=== PATIENT | male | born 1945 | race Hispanic/Latino ===

== ENCOUNTER 2018-05-08 19:46 | Emergency (ER) | payer MEDICARE, BC ==
[2018-05-08 19:50] VITALS: BMI 39.0
[2018-05-08 21:04] VITALS: RESP 19; TEMP 97.8
--- NOTE | 2018-05-08 21:40 | ED PDOC ---
Arrival/HPI - General Historian: Patient - General Chief Complaint: Abdominal Pain Time Seen by Provider: 05/08/18 19:53 - History of Present Illness Narrative History of Present Illness (Text): 72 year old Male with history of colitis presents with Abdominal cramping that started at 2:30 PM today. He has had 2 episodes of nonbloody diarrhea followed by two episodes of diarrhea followed with a few drops of blood from the anus post defecation. He took peptobismol after the 1st and 2nd episode of nonbloody diarrhea. He hasn't had a bowel movement in a few hours. Abdominal cramping was improved with defecation. He denies nausea, vomiting, fever, headache, and dizziness. 05/08/18 21:37 05/08/18 21:40 (Cyndi Carlisle) Past Medical History - Provider Review Nursing Documentation Reviewed: Yes - Infectious Disease Hx of Infectious Diseases: None - Tetanus Immunization Tetanus Immunization: Up to Date - Cardiac Hx Cardiac Disorders: Yes Hx Hypertension: Yes Other/Comment: AAA - Gastrointestinal Hx Gastroesophageal Reflux: Yes Other/Comment: colitis, hernia - Psychiatric Hx Depression: No Hx Emotional Abuse: No Hx Physical Abuse: No Hx Substance Use: No - Past Surgical History Past Surgical History: No Previous - Surgical History Other/Comment: repaired abd and groin aneurysm, 2014 - Anesthesia Hx Anesthesia: Yes Hx Anesthesia Reactions: No Hx Malignant Hyperthermia: No - Suicidal Assessment Feels Threatened In Home Enviroment: No Family/Social History - Physician Review Nursing Documentation Reviewed: Yes Family/Social History: Unknown Family HX Smoking Status: Former Smoker Hx Alcohol Use: Yes (wine) Frequency of alcohol use: Socially Hx Substance Use: No Hx Substance Use Treatment: No Allergies/Home Meds Allergies/Adverse Reactions: Allergies banana Allergy (Verified 05/08/18 21:04) RASH iodine Allergy (Verified 05/08/18 21:04) RASH Penicillins Allergy (Verified 05/08/18 21:04) RASH shellfish derived Allergy (Verified 05/08/18 21:04) ANAPHYLAXIS shrimp Allergy (Verified 05/08/18 21:04) ANAPHYLAXIS contrast dye Adverse Reaction (Uncoded 05/08/18 21:05) RASH Home Medications: Home Meds Medication Instructions Recorded Confirmed Atorvastatin Calcium [Lipitor] 20 mg PO HS 08/01/13 05/08/18 Metoprolol Succinate XL [Toprol XL] 100 mg PO DAILY 08/01/13 05/08/18 Valsartan/Hydrochlorothiazide 12.5 mg PO DAILY 08/21/16 05/08/18 [Diovan Hct 320-25 mg Tablet] Review of Systems - Physician Review All systems were reviewed & negative as marked: Yes - Review of Systems Constitutional: Normal Eyes: Normal Respiratory: Normal Cardiovascular: Normal Gastrointestinal: Abdominal Pain, Diarrhea, Other (bloody diarrhea) Musculoskeletal: Normal Skin: Normal Physical Exam Temperature: Afebrile Blood Pressure: Hypertensive Pulse: Regular Respiratory Rate: Normal Appearance: Positive for: Well-Appearing Pain Distress: None Mental Status: Positive for: Alert and Oriented X 3 - Systems Exam Head: Present: Atraumatic, Normocephalic Pupils: Present: PERRL Extroacular Muscles: Present: EOMI Nose (External): Present: Atraumatic Neck: Present: Normal Range of Motion Respiratory/Chest: Present: Clear to Auscultation Cardiovascular: Present: Regular Rate and Rhythm Abdomen: Present: Normal Bowel Sounds Back: Present: Normal Inspection Upper Extremity: Present: Normal Inspection, Normal ROM, NORMAL PULSES Lower Extremity: Present: Normal Inspection, NORMAL PULSES, Normal ROM Neurological: Present: GCS=15, CN II-XII Intact, Speech Normal Skin: Present: Warm, Dry Psychiatric: Present: Alert, Oriented x 3, Normal Insight, Normal Concentration Vital Signs Temp Pulse Resp BP Pulse Ox 05/09/18 01:58 52 L 19 127/82 96 05/08/18 23:30 88 19 120/65 05/08/18 20:49 97.8 F 78 19 152/101 H 97 Medical Decision Making ED Course and Treatment: 05/08/18 22:54 Patient seen and evaluated with spanish medical interpreter. Patient on examination with mild diffuse abdominal pain. Rectal exam reviewed with resident, there is heme positive stool but no gross bleeding or melena. Pain is not colicky. No rebound or guarding noted. No chest pain or palpitations noted. Patient is not on anticoagulants. Denies lightheadedness or dizziness. He has prior history of colitis. CT ordered with oral contrast. On re-exam patient is comfortable, pending CT scan. Will endorse case to Dr. Schulte for re-exam, follow-up of CT, disposition. (Talon Campos) Impression: 72 year old Male presents with 7 hour history of abdominal cramping , 2 episodes of nonbloody diarrhea, and 2 episodes of bloody diarrhea. Assessment: colitis, hemorrhoids Rule out diverticulosis, diverticulitis, AVM, colon cancer, upper GI bleed causes Plan: IV Saline 1L at 100ml/hr CBC CMP PT/INR PTT Imaging: Abdominal CT Rectal Exam: guaiac positive EK05/08/18 21:44 05/08/18 21:47 (Cyndi Carlisle) - Lab Interpretations Lab Results: 05/08/18 22:17 05/08/18 22:17 Lab Results 05/08/18 23:02: PT 11.9, INR 1.04, APTT 30.5 05/08/18 22:17: Sodium 141, Potassium 4.5, Chloride 105, Carbon Dioxide 26, Anion Gap 15, BUN 20, Creatinine 0.8, Est GFR ( Amer) > 60, Est GFR (Non- Af Amer) > 60, Random Glucose 119 H, Calcium 9.6, Total Bilirubin 0.9, AST 94 H , ALT 98 H, Alkaline Phosphatase 66, Total Protein 7.5, Albumin 4.1, Globulin 3.4, Albumin/Globulin Ratio 1.2 05/08/18 22:17: WBC 8.7, RBC 4.14, Hgb 12.8 L, Hct 37.8 L, MCV 91.3, MCH 30.9, MCHC 33.9, RDW 13.6, Plt Count 200, MPV 9.9, Gran % 63.1, Lymph % (Auto) 25.0, Sandoval % (Auto) 9.3 H, Eos % (Auto) 2.0, Baso % (Auto) 0.6, Gran # 5.47, Lymph # ( Auto) 2.2, Sandoval # (Auto) 0.8 H, Eos # (Auto) 0.2, Baso # (Auto) 0.05 - RAD Interpretation Radiology Orders: 05/08/18 21:32 ABD & PELVIS PO CONTRAST ONLY [CT] Stat - Medication Orders Current Medication Orders: Discontinued Medications Sodium Chloride (Sodium Chloride 0.9%) 1,000 mls @ 100 mls/hr IV .Q10H CHAN Last Admin: 05/08/18 22:17 Dose: 100 mls/hr - PA / CREDIT REVIEW OFFICER / Resident Statement / has reviewed & agrees with the documentation as recorded. / has examined the patient and agrees with the treatment plan. Disposition/Present on Arrival - Present on Arrival Any Indicators Present on Arrival: No History of DVT/PE: No History of Uncontrolled Diabetes: No Urinary Catheter: No History of Decub. Ulcer: No History Surgical Site Infection Following: None - Disposition Have Diagnosis and Disposition been Completed?: Yes Disposition Time: 21:28 Patient Plan: Discharge - Disposition Diagnosis: Rectal bleeding Disposition: HOME/ ROUTINE Condition: STABLE Discharge Instructions (ExitCare): Bloody Stools Referrals: Manolo Boles MD [Primary Care Provider] - Follow up with primary Forms: [employer] (Persian)
[2018-05-08] MEDS ORDERED: Sodium Chloride 0.9% 1,000 ML IV SCH (21:45)
[2018-05-08] MEDS ORDERED: Iohexol 240 (50 ml) ONE (22:01)
[2018-05-08 22:21] LABS: BASO # 0.05 K/mm3 (0.0-2.0); BASO % 0.6 % (0.0-3.0); EOS # 0.2 (0.0-0.7); GRAN # 5.47 (1.4-6.5); GRAN % 63.1 % (50.0-68.0); HEMOGLOBIN 12.8 g/dL (14.0-18.0); LYMPH # 2.2 (1.2-3.4); MEAN CELL VOLUME 91.3 fl (80.0-105.0); MEAN CORPUSCULAR HEMOGLOBIN 30.9 pg (25.0-35.0); MEAN CORPUSCULAR HGB CONC 33.9 g/dl (31.0-37.0); MEAN PLATELET VOLUME 9.9 fl (7.0-11.0); MONO # 0.8 (0.1-0.6); MONO % 9.3 % (1.0-6.0); RBC 4.14 10^6/uL (3.5-6.1); RED CELL DISTRIBUTION WIDTH 13.6 % (11.5-14.5); WHITE BLOOD COUNT 8.7 10^3/ul (4.5-11.0)
[2018-05-08 22:30] LABS: CALCIUM 9.6 mg/dL (8.4-10.5); GFR AFRICAN-AMERICAN > 60; GFR NON-AFRICAN AMERICAN > 60
[2018-05-08 22:45] LABS: ALB/GLOB RATIO 1.2 (1.1-1.8); ALBUMIN 4.1 g/dL (3.0-4.8); ALT/SGPT 98 U/L (7-56); AST/SGOT 94 U/L (17-59); BLOOD UREA NITROGEN 20 mg/dL (7-21)
[2018-05-08 23:16] LABS: INR 1.04 (0.93-1.08); PARTIAL THROMBOPLASTIN TIME 30.5 Seconds (25.1-36.5); PROTHROMBIN TIME 11.9 SECONDS (9.4-12.5)
--- NOTE | 2018-05-09 01:50 | ED PDOC ---
Physical Exam Vital Signs Temp Pulse Resp BP Pulse Ox 05/08/18 23:30 88 19 120/65 05/08/18 20:49 97.8 F 78 19 152/101 H 97 Medical Decision Making ED Course and Treatment: Signed out to me at change of shift pending CT. IMPRESSION: 1. Decreased right inguinal hernia since the prior study of 08/24/2016. Minimal residual is noted. A fat filled left inguinal hernia is similar. 2. Mild bibasilar atelectasis or scar which is similar. 3. Fatty infiltration of the liver which is similar. 4. Pancreatic calcifications with minimal cystic area at the anterior aspect of the head/neck junction which are unchanged. 5. Parenchymal loss in the lower left kidney which is similar. 6. Aortobiiliac stent is similar. 7. No acute interval process is identified. Labs unremarkable. Patient to be discharged, f/u GI, return to ED for worsening bleeding, fever, vomiting, or any other problem. - Lab Interpretations Lab Results: 05/08/18 22:17 05/08/18 22:17 Lab Results 05/08/18 23:02: PT 11.9, INR 1.04, APTT 30.5 05/08/18 22:17: Sodium 141, Potassium 4.5, Chloride 105, Carbon Dioxide 26, Anion Gap 15, BUN 20, Creatinine 0.8, Est GFR ( Amer) > 60, Est GFR (Non- Af Amer) > 60, Random Glucose 119 H, Calcium 9.6, Total Bilirubin 0.9, AST 94 H , ALT 98 H, Alkaline Phosphatase 66, Total Protein 7.5, Albumin 4.1, Globulin 3.4, Albumin/Globulin Ratio 1.2 05/08/18 22:17: WBC 8.7, RBC 4.14, Hgb 12.8 L, Hct 37.8 L, MCV 91.3, MCH 30.9, MCHC 33.9, RDW 13.6, Plt Count 200, MPV 9.9, Gran % 63.1, Lymph % (Auto) 25.0, Price % (Auto) 9.3 H, Eos % (Auto) 2.0, Baso % (Auto) 0.6, Gran # 5.47, Lymph # ( Auto) 2.2, Price # (Auto) 0.8 H, Eos # (Auto) 0.2, Baso # (Auto) 0.05 - RAD Interpretation Radiology Orders: 05/08/18 21:32 ABD & PELVIS PO CONTRAST ONLY [CT] Stat - Medication Orders Current Medication Orders: Sodium Chloride (Sodium Chloride 0.9%) 1,000 mls @ 100 mls/hr IV .Q10H CHAN Last Admin: 05/08/18 22:17 Dose: 100 mls/hr Disposition/Present on Arrival - Present on Arrival Any Indicators Present on Arrival: No History of DVT/PE: No History of Uncontrolled Diabetes: No Urinary Catheter: No History of Decub. Ulcer: No History Surgical Site Infection Following: None - Disposition Have Diagnosis and Disposition been Completed?: Yes Diagnosis: Rectal bleeding Disposition: HOME/ ROUTINE Disposition Time: 01:50 Patient Plan: Discharge Patient Problems: Current Active Problems Problem Status Onset Rectal bleeding Acute Condition: STABLE Discharge Instructions (ExitCare): Bloody Stools Referrals: Manolo Boles MD [Primary Care Provider] - Follow up with primary Forms: [employer] (Yakut)
[2018-05-09 02:06] VITALS: BP 127/82; PULSE 52; O2SAT 96
--- NOTE | 2018-05-09 07:34 | CT ---
Date of service: 05/09/2018 PROCEDURE: CT Abdomen and Pelvis without intravenous contrast HISTORY: abdominal pain, bloody stool COMPARISON: 08/24/16. TECHNIQUE: Technique. Contrast dose: Radiation dose: Total exam DLP = mGy-cm. This CT exam was performed using one or more of the following dose reduction techniques: Automated exposure control, adjustment of the mA and/or kV according to patient size, and/or use of iterative reconstruction technique. FINDINGS: LOWER THORAX: Unremarkable. LIVER: Fat. No gross lesion or ductal dilatation. GALLBLADDER AND BILE DUCTS: Unremarkable. PANCREAS: Pancreatic calcifications with a 2.2 centimeter cystic lesion along the ventral margin of the pancreatic body. This is grossly unchanged per continued. No gross lesion or ductal dilatation. SPLEEN: Unremarkable. ADRENALS: Unremarkable. No mass. KIDNEYS AND URETERS: Atrophy of the left inferior kidney, unchanged. No hydronephrosis. No solid mass. VASCULATURE: Aorto bi-iliac stent. No aortic aneurysm. BOWEL: Unremarkable. No obstruction. No gross mural thickening. APPENDIX: Unremarkable. Normal appendix. PERITONEUM: Unremarkable. No free fluid. No free air. LYMPH NODES: Unremarkable. No enlarged lymph nodes. BLADDER: Unremarkable. REPRODUCTIVE: Unremarkable. BONES: No acute fracture. OTHER FINDINGS: Left inguinal hernia containing omental fat. . IMPRESSION: No acute pathology. Additional findings discussed above the edge from prior exam.
--- NOTE | 2018-05-09 20:17 | CARD ---
APPROVED REPORT Date of service: 05/08/2018 EKG Measurement Heart [id number] <Conclusion> Atrial fibrillation with premature ventricular or aberrantly conducted complexes Nonspecific ST and T wave abnormality, probably digitalis effect Abnormal ECG
--- NOTE | 2018-05-09 20:17 | CARD ---
APPROVED REPORT Date of service: 05/08/2018 EKG Measurement Heart [id number] <Conclusion> Atrial fibrillation with premature ventricular or aberrantly conducted complexes Abnormal ECG
== END 2018-05-09 01:58 | disposition home or self-care (01) ==
LOC: ED 19:46
DX: K62.5 Hemorrhage of anus and rectum (principal); I10 Essential (primary) hypertension; Z87.891 Personal history of nicotine dependence
CPT/HCPCS: 74176; 80053; 85025; 85610; 85730; 93005; 99284; J7030; Q9966